=== PATIENT | male | born 1930 | race Caucasian/White ===

== ENCOUNTER 2017-04-17 16:51 | Inpatient (IN) | payer OTHER ==
[~2017-04-17] VITALS: Ht 177.8 cm; Wt 73.3 kg
[~2017-04-17 16:51] MED LIST: AMARYL4 MG PO; APRESOLINE10 MG PO; ATIVAN0.5 MG PO; B-COMPLEX-VITA1 EACH PO; BROMDAY1.7 M1 RIGHT EYE; CITALOPRAM HBR20 M1 PO; Durezol 0.05% Ophtha RIGHT EYE; FISH OIL 1,0001 EAC7 PO; Fish Oil PO; LABETALOL HCL200 MG PO; LO-DOSE ASPIRIN81 M1 PO; LOVASTATIN20 MG PO; NORMODYNE,TRAND50 MG PO; NORVASC10 MG PO; Norvasc PO; PLAVIX75 MG PO; REMERON15 M2 PO; REQUIP0.5 MG PO; REQUIP3 MG PO; ROCALTROL0.25 MCG PO; Rocaltrol PO; THERAGRAN1 TABLET PO; ULTRAM50 MG PO; Vitamin B Complex PO; XANAX0.5 MG PO; ZESTORETIC,P1 TABLE2 PO; Zocor PO; [UNRECOGNIZED DRUG - OTHER] RIGHT EYE
[2017-04-17 17:30] LABS: HEMATOCRIT 31.8 % (38.0-50.0); HEMOGLOBIN 10.3 G/DL (12.5-16.6); MCH 31.8 PG (29.0-34.0); MCHC 32.4 G/DL (30.0-36.0); MCV 98.1 FL (86-99); PLATELET COUNT 239 K/uL (156-360); RBC DIS.WIDTH-CV 14.2 % (11.8-14.6); RBC DIS.WIDTH-SD 50.8 % (39-53); RED BLOOD COUNT 3.24 M/uL (4.00-5.50); WHITE BLOOD COUNT 7.4 K/uL (4.1-10.2)
[2017-04-17 17:38] LABS: CHLORIDE 107 mEq/L (99-109)
[2017-04-17 17:39] LABS: POTASSIUM 4.6 mEq/L (3.7-5.4); SODIUM 141 mEq/L (136-147)
[2017-04-17 17:40] LABS: GLUCOSE 114 mg/dL (70-99)
[2017-04-17 17:44] LABS: CREATININE 3.4 mg/dL (0.6-1.3); GFR ESTIMATE (CALCULATED) 18 mL/min/ (58.99-99999)
[2017-04-17 17:45] LABS: UREA NITROGEN (BUN) 60 mg/dL (9-23)
[2017-04-17] MEDS ORDERED: REQUIP2 MG PO (18:35)
[2017-04-17] MEDS ORDERED: IRON325 M1 PO (18:37)
[2017-04-17 23:09] VITALS: BP 172/82
[2017-04-17 23:30] VITALS: BP 172/82
[2017-04-18] VITALS (7 sets, daily range): BP systolic 111–164; BP diastolic 56–77
[2017-04-18 05:34] LABS: BASOPHIL (%) 0 % (0-1); EOSINOPHIL (%) 0 % (0-5); HEMATOCRIT 31.1 % (38.0-50.0); IMMATURE GRANULOCYTE (%) 0.5 % (0.0-0.7); LYMPHOCYTE (%) 6.3 % (15-42); LYMPHOCYTE COUNT 0.3 K/uL (1.0-2.8); MCH 31.3 PG (29.0-34.0); MCHC 32.2 G/DL (30.0-36.0); MCV 97.5 FL (86-99); MONOCYTE (%) 0.7 % (3-12); NEUTROPHIL (%) 92.5 % (45-76); NEUTROPHIL COUNT 3.8 K/uL (1.8-6.4); PLATELET COUNT 246 K/uL (156-360); RBC DIS.WIDTH-CV 14.2 % (11.8-14.6); RBC DIS.WIDTH-SD 50.7 % (39-53); RED BLOOD COUNT 3.19 M/uL (4.00-5.50); WHITE BLOOD COUNT 4.1 K/uL (4.1-10.2)
[2017-04-18 05:58] LABS: CHLORIDE 104 MEQ/L (99-109); CREATININE 3.6 MG/DL (0.6-1.3); GFR ESTIMATE (CALCULATED) 17 mL/min/ (58.99-99999); POTASSIUM 4.8 MEQ/L (3.7-5.4); SODIUM 140 MEQ/L (136-147); UREA NITROGEN (BUN) 63 mg/dL (9-23)
[2017-04-18 05:59] LABS: GLUCOSE 298 mg/dL (70-99)
[2017-04-19 04:15] VITALS: BP 121/58
[2017-04-19 06:34] LABS: CHLORIDE 104 MEQ/L (99-109); GFR ESTIMATE (CALCULATED) 15 mL/min/ (58.99-99999); GLUCOSE 193 mg/dL (70-99); POTASSIUM 4.6 MEQ/L (3.7-5.4); SODIUM 140 MEQ/L (136-147); UREA NITROGEN (BUN) 85 mg/dL (9-23)
[2017-04-19 08:21] VITALS: BP 127/78
[2017-04-19] MEDS ORDERED: CEFTIN250 MG PO (11:09)
[2017-04-19] MEDS ORDERED: PREDNISONE10 MG PO (11:10)
== END 2017-04-19 12:07 | disposition home health service (06) | DRG 189 ==
LOC: EME 16:51 → 3EAST 21:49 → EDOF 21:49 → ENRESERV 21:52 → 3EAST 22:54
PROVIDERS: Emergency Medicine; Family Medicine; Hospitalist
DX: J96.01 Acute respiratory failure with hypoxia (principal); J18.9 Pneumonia, unspecified organism; J44.0 Chronic obstructive pulmonary disease with (acute) lower respiratory infection; J44.1 Chronic obstructive pulmonary disease with (acute) exacerbation; I13.0 Hypertensive heart and chronic kidney disease with heart failure and stage 1 through stage 4 chronic kidney disease, or unspecified chronic kidney disease; I50.30 Unspecified diastolic (congestive) heart failure; E11.22 Type 2 diabetes mellitus with diabetic chronic kidney disease; N18.4 Chronic kidney disease, stage 4 (severe); E78.5 Hyperlipidemia, unspecified; D64.9 Anemia, unspecified; I35.0 Nonrheumatic aortic (valve) stenosis; F32.9 Major depressive disorder, single episode, unspecified; F41.9 Anxiety disorder, unspecified; F17.210 Nicotine dependence, cigarettes, uncomplicated; Z85.819 Personal history of malignant neoplasm of unspecified site of lip, oral cavity, and pharynx; Z85.828 Personal history of other malignant neoplasm of skin; Z86.718 Personal history of other venous thrombosis and embolism; Z79.82 Long term (current) use of aspirin; Z79.02 Long term (current) use of antithrombotics/antiplatelets; Z88.0 Allergy status to penicillin
CPT/HCPCS: 71045; 71046; 80048; 82948; 83880; 85025; 85027; 87040; 87070; 87205; 87449; 93005; 93306; 94799; 99281; 99285; J0456; J0696; J1644; J1815; J1940; J2920; J2930; J7512; J7644

== ENCOUNTER 2017-09-24 09:19 | Day surgery (SDC) | payer OTHER ==
[~2017-09-24] VITALS: Ht 177.8 cm; Wt 78.9 kg
[~2017-09-24 09:19] MED LIST changes: +APRESOLINE25 MG PO; +CEFTIN250 MG PO; +FERAHEME510 MG/17 IV; +HYDRALAZINE HCL10 MG PO; +IRON325 M1 PO; +LASIX20 MG PO; +NORMODYNE,TRAN200 MG PO; +PREDNISONE10 MG PO; +PROCRIT10000 UNI1 SC; +REQUIP2 MG PO
[2017-09-24 09:56] VITALS: BP 128/60
[2017-09-24 10:11] LABS: HEMATOCRIT 28.2 % (38.0-50.0); HEMOGLOBIN 8.5 G/DL (12.5-16.6); MCH 31.6 PG (29.0-34.0); MCHC 30.1 G/DL (30.0-36.0); MCV 104.8 FL (86-99); PLATELET COUNT 187 K/uL (156-360); RBC DIS.WIDTH-CV 17.6 % (11.8-14.6); RBC DIS.WIDTH-SD 63.5 % (39-53); RED BLOOD COUNT 2.69 M/uL (4.00-5.50); WHITE BLOOD COUNT 5.1 K/uL (4.1-10.2)
[2017-09-24 11:31] LABS: CHLORIDE 112 MEQ/L (99-109); CREATININE 4.8 MG/DL (0.6-1.3); GFR ESTIMATE (CALCULATED) 12 mL/min/ (58.99-99999); GLUCOSE 113 mg/dL (70-99); POTASSIUM 5.5 MEQ/L (3.7-5.4); SODIUM 143 MEQ/L (136-147); UREA NITROGEN (BUN) 87 mg/dL (9-23)
[2017-09-24 15:05] VITALS: BP 103/53
[2017-09-24 15:53] VITALS: BP 107/55
== END 2017-09-24 15:50 | disposition home or self-care (01) ==
LOC: SDC
PROVIDERS: Surgery
DX: I12.0 Hypertensive chronic kidney disease with stage 5 chronic kidney disease or end stage renal disease (principal); E11.22 Type 2 diabetes mellitus with diabetic chronic kidney disease; N18.6 End stage renal disease; Z87.891 Personal history of nicotine dependence; E78.00 Pure hypercholesterolemia, unspecified; D64.9 Anemia, unspecified; Z85.89 Personal history of malignant neoplasm of other organs and systems; Z79.82 Long term (current) use of aspirin; Z88.0 Allergy status to penicillin; Z79.02 Long term (current) use of antithrombotics/antiplatelets
CPT/HCPCS: 80048; 85027; C1768; J1644; J2405; J2720; J3010

== ENCOUNTER 2017-09-29 15:14 | Emergency (ER) | payer OTHER ==
[~2017-09-29] VITALS: Ht 172.7 cm; Wt 82.3 kg
[2017-09-29 15:14] VITALS: BP 134/60
[2017-09-29 15:45] LABS: BASOPHIL (%) 0.2 % (0-1); EOSINOPHIL COUNT 0.1 K/uL (0-0.3); HEMATOCRIT 27.6 % (38.0-50.0); HEMOGLOBIN 8.2 G/DL (12.5-16.6); IMMATURE GRANULOCYTE (%) 4.1 % (0.0-0.7); LYMPHOCYTE (%) 17.5 % (15-42); LYMPHOCYTE COUNT 1.1 K/uL (1.0-2.8); MCH 31.7 PG (29.0-34.0); MCHC 29.7 G/DL (30.0-36.0); MCV 106.6 FL (86-99); MONOCYTE (%) 4.4 % (3-12); MONOCYTE COUNT 0.3 K/uL (0-0.8); NEUTROPHIL (%) 72.8 % (45-76); NEUTROPHIL COUNT 4.5 K/uL (1.8-6.4); NRBC (%) 0.3 /100 WBC (0-0); PLATELET COUNT 163 K/uL (156-360); RBC DIS.WIDTH-CV 18.4 % (11.8-14.6); RBC DIS.WIDTH-SD 69.2 % (39-53); RED BLOOD COUNT 2.59 M/uL (4.00-5.50); WHITE BLOOD COUNT 6.1 K/uL (4.1-10.2)
[2017-09-29 15:50] LABS: SITE RR
[2017-09-29 15:51] LABS: APPEARANCE CLOUDY ((CLEAR)); BILIRUBIN NEGATIVE; BLOOD NEGATIVE; COLOR YELLOW ((YELLOW)); GLUCOSE (STRIP) NEGATIVE; KETONES NEGATIVE; LEUKOCYTES NEGATIVE; NITRITE NEGATIVE; PROTEIN (STRIP) 100; SPECIFIC GRAVITY 1.013 (1.000-1.030); UROBILINOGEN 0.2 MG/DL (0.2-1.0)
[2017-09-29 15:51] LABS: DEVICE VENT; FI02 50 %; MECHANICAL RATE 18 resp/min; MODE AC; PEEP 5 CM/H20; TIDAL VOLUME 400 ML; TOTAL RESP RATE 20 resp/min
[2017-09-29 15:52] LABS: BASE EXCESS -13.4 mEq/L (-3 to +3); BICARBONATE 14.3 mEq/L (22-26); CARBOXY HGB 2.1 % (0-5); COMMENTS - BLOOD GASES CRITICAL; METHEMOGLOBIN 0.7 % (0-1.5); PCO2 40 mm Hg (35-45); PO2 108 mm Hg (80-100); pH 7.16 (7.35-7.45)
[2017-09-29 15:53] LABS: INTER. NORMALIZED RATIO 1.1
[2017-09-29 15:54] LABS: ALBUMIN 3.3 g/dL (3.2-4.8); CHLORIDE 111 mEq/L (99-109); SODIUM 138 mEq/L (136-147)
[2017-09-29 15:55] LABS: AMYLASE 51 IU/L (1-118); PTT 40.8 SEC (25-37)
[2017-09-29 15:57] LABS: GLUCOSE 169 mg/dL (70-99); TOTAL PROTEIN 5.8 g/dL (6.4-8.3)
[2017-09-29 15:58] LABS: TOTAL BILIRUBIN 0.5 mg/dL (0.0-1.0)
[2017-09-29 16:00] LABS: ALKALINE PHOSPHATASE 95 IU/L (3-129); GFR ESTIMATE (CALCULATED) 7 mL/min/ (58.99-99999); POTASSIUM 6.3 mEq/L (3.7-5.4); SERUM ETHYL ALCOHOL < 10 mg/dL
[2017-09-29 16:02] LABS: AST (GOT) 84 IU/L (2-34); DIRECT BILIRUBIN 0.3 mg/dL (0.0-0.3); UREA NITROGEN (BUN) 125 mg/dL (9-23)
[2017-09-29 16:03] LABS: ALT (GPT) 65 IU/L (3-49)
[2017-09-29 16:04] LABS: LIPASE 83 U/L (1.0-51.0)
[2017-09-29 16:06] LABS: AMPHETAMINE NEGATIVE (500 ng/mL); BARBITURATES NEGATIVE (200 ng/mL); BENZODIAZEPINES NEGATIVE (150 ng/mL); BUPRENORPHINE NEGATIVE (10 ng/mL); COCAINE NEGATIVE (150 ng/mL); METHADONE NEGATIVE (200 ng/mL); METHAMPHETAMINE NEGATIVE (500 ng/mL); OPIATES (MORPHINE) PRESUMPTIVE POSITIVE (100 ng/mL); OXYCODONE NEGATIVE (100 ng/mL); PHENCYCLIDINE NEGATIVE (25 ng/mL); PROPOXYPHENE NEGATIVE (300 ng/mL); THC CANNABINOIDS NEGATIVE (50 ng/mL); TRICYCLIC ANTIDEPRESSANTS NEGATIVE (300 ng/mL)
[2017-09-29 16:08] LABS: TROP-I INTERPRETATION NEGATIVE; TROPONIN-I 0.04 ng/mL (0.0-0.30)
[2017-09-29 16:24] LABS: BACTERIA 3+ /HPF; EPITHELIAL CELLS RARE /HPF; RED BLOOD CELLS 0-5 /HPF (0-5); UCUL ADDED? YES; WHITE BLOOD CELLS RARE /HPF (0-5)
[2017-09-29 16:25] LABS: AMORPHOUS URATES CRYSTALS 2+; MUCUS 1+ /LPF
== END 2017-09-29 18:35 ==
LOC: EME 15:14
PROVIDERS: Emergency Medicine
DX: I46.9 Cardiac arrest, cause unspecified (principal); E87.5 Hyperkalemia; I12.9 Hypertensive chronic kidney disease with stage 1 through stage 4 chronic kidney disease, or unspecified chronic kidney disease; N18.9 Chronic kidney disease, unspecified; Z99.2 Dependence on renal dialysis
CPT/HCPCS: 36600; 71045; 80047; 80048; 80076; 81003; 82150; 83605; 83690; 84484; 84999; 85025; 85610; 85730; 86850; 86900; 86901; 87040; 87070; 87086; 87205; 93005; 94002; 99281; 99285; G0480; J2270